=== PATIENT | female | born 1965 | race Caucasian/White ===

== ENCOUNTER 2020-05-24 16:22 | Emergency (ER) | payer BC, SELFPAY ==
[2020-05-24 16:37] VITALS: BP 126/71; PULSE 82; RESP 20; TEMP 36.6; O2SAT 100
--- NOTE | 2020-05-24 16:42 | ED.EAR ---
HPI - Ear Problem General Chief complaint: Ear Stated complaint: ear pain History of Present Illness HPI Narrative: This is a 54-year-old female comes in complaining of right ear pain. Patient states that she has chronic sinusitis she noticed a couple days ago that she started having sinus drainage in the back of her throat currently has a sore throat and pressure in her right side of the face that has been causing her headaches she takes allergy medicine daily with some's nasal spray. Patient states that she is waited about 2 days but she normally has gets ear infection noticed that there is some slight swelling on the right side. Patient states she can start taking allergy medicine twice a day now that she is not feeling well. Patient denies any fever nausea vomiting and/or diarrhea. Patient denies being exposed that she knows of to COVID-19 Related Data Home Medications Medication Instructions Recorded Confirmed fluticasone propionate 2 spray INTRANASAL DAILY 05/24/20 05/24/20 loratadine-pseudoephedrine 1 tablet PO Q12H 05/24/20 05/24/20 [[facility] 12 Hour] omeprazole 20 mg PO DAILY 05/24/20 05/24/20 Allergies Allergy/AdvReac Type Severity Reaction Status Date / Time Penicillins Allergy Hives Verified 05/24/20 16:40 Review of Systems Review of Systems: Narrative: CONSTITUTIONAL: Denies fever, chills, or sweats. EYES: Denies visual changes, redness, or discharge. ENT: Reports rhinorrhea, congestion, sore throat, or reports otalgia. CARDIOVASCULAR:Denies chest pain, palpitations, or edema. RESPIRATORY: Denies cough or dyspnea. GASTROINTESTINAL: Denies abdominal pain, nausea, vomiting, or diarrhea. GENITOURINARY: Denies dysuria or hematuria. SKIN:[Denies rash or itching. MUSCULOSKELETAL:Denies back pain, joint pain, or myalgia. NEUROLOGIC: Denies headache, numbness, or weakness. PSYCHIATRIC:Denies anxiety or depression PMFSH Comments At time as signature, I have reviewed and agree with nursing past medical, social, surgical and family history. Please see nursing chart for further information. There is no relevant family history pertinent to the presenting complaint. Exam Narrative: Exam Narrative: GENERAL:Well-appearing, well-nourished, and in no acute distress. HEAD:Normocephalic, atraumatic. EYES: PERRLA and EOMI. right-sided TM slightly pinkish fluid noted slightly cloudy ENT: Nares clear, positive rhinorrhea or epistaxis. Mucous membranes moist. NECK: Supple. CHEST: Clear to auscultation. No respiratory distress. HEART: Regular rate and rhythm. No murmur heard. Normal peripheral pulses. ABDOMEN: Soft, nontender, nondistended, normal active bowel sounds. EXTREMITIES: Normal range of motion. No edema. SKIN: Warm, dry, no rash. NEURO: No focal deficits. Alert and oriented x3. Course Vital Signs Vital signs: Vital Signs Temperature 98 F 05/24/20 16:37 Pulse Rate 82 05/24/20 16:37 Respiratory Rate 20 05/24/20 16:37 Blood Pressure 126/71 05/24/20 16:37 Pulse Oximetry 100 05/24/20 16:37 Temperature 98 F 05/24/20 16:37 Pulse Rate 82 05/24/20 16:37 Respiratory Rate 20 05/24/20 16:37 Blood Pressure 126/71 05/24/20 16:37 Pulse Oximetry 100 05/24/20 16:37 Medical Decision Making Differential Diagnosis Differential Diagnosis: UR pneumonia, Allergic Rhinitis, Asthma/COPD exacerbation, Upper respiratory cough syndrome, Pharyngitis, Sinusitis, Bronchitis, Influenza, otitis media Vital Signs Vital Signs: Vital Signs Temperature 98 F 05/24/20 16:37 Pulse Rate 82 05/24/20 16:37 Respiratory Rate 20 05/24/20 16:37 Blood Pressure 126/71 05/24/20 16:37 Pulse Oximetry 100 05/24/20 16:37 Temperature 98 F 05/24/20 16:37 Pulse Rate 82 05/24/20 16:37 Respiratory Rate 20 05/24/20 16:37 Blood Pressure 126/71 05/24/20 16:37 Pulse Oximetry 100 05/24/20 16:37 Discharge Plan Discharge Clinical Impression: Chronic frontal sinusitis Naila
== END 2020-05-24 17:04 | disposition home or self-care (01) ==
PROVIDERS: Emergency Provider Nurse Practitioner Family
DX: J32.1 Chronic frontal sinusitis (principal); H66.91 Otitis media, unspecified, right ear; K21.9 Gastro-esophageal reflux disease without esophagitis
CPT/HCPCS: 99203; G0463

== ENCOUNTER 2020-06-22 10:10 | Emergency (ER) | payer BC, SELFPAY ==
--- NOTE | 2020-06-22 10:22 | ED.URI ---
HPI - URI/Sore Throat General Chief Complaint: Upper Respiratory Infection Stated Complaint: sinus infection Source: patient and RN notes reviewed Limitations: no limitations History of Present Illness HPI Narrative: The patient, a previously healthy non-smoker/nondrinker hospital ministry worker, presents with congestion. Patient states she has a prior history of sinus disease including sinus surgery. She now has over a week, close to 2-week, history of frontal sinus headache, maxillary tenderness, right-sided nasal congestion. No triggers like smoker/pets [but she had dog in the house last week], loss of taste or smell, CP, cough, sneezing/wheezing, S OB, N/V/D, earache- she had a May prior [ear infection treated with Keflex]. Symptoms are mild, unrelieved with OTC preparations like fluticasone , and Claritin. [id number] testing for Covid antigen is negative Related Data Home Medications Medication Instructions Recorded Confirmed fluticasone propionate 2 spray INTRANASAL DAILY 05/24/20 05/24/20 loratadine-pseudoephedrine 1 tablet PO Q12H 05/24/20 05/24/20 [[facility] 12 Hour] omeprazole 20 mg PO DAILY 05/24/20 05/24/20 Allergies Allergy/AdvReac Type Severity Reaction Status Date / Time Penicillins Allergy Hives Verified 05/24/20 16:40 Review of Systems Review of Systems: Narrative: General/Constitutional: No weight loss,fever Eyes: N0: Redness,discharge Ears/Nose/Throat: No: Epistaxis,ear discharge Respiratory: Denies: Hemoptysis Gastrointestinal: No Vomiting, Bleeding-rectal Skin: No Lumps, eruption Neurologic: No Focal Weakness,Sz Hematologic: Denies: Petechiae/Purpura Psychiatric: No: Suicida ideationl All Other Systems: Reviewed and Negative PMFSH Social History Social History Gender identity (if verbalized by the patient): Female Comments At time of signature, agree with nursing past medical, surgical, social and family history. There is no relevant family history pertinent to the presenting complaint Exam Narrative: Exam Narrative: General Appearance: Well appearing, Well nourished EYE: PERRLA, Conjunctiva clear Ears: Auditory canal normal, TM normal Nose: Rhinorrhea, Mucousal erythema Mouth/Throat: MM moist, Uvula midline, Pharyngeal erythema Neck: Supple, No adenopathy Respiratory: No respiratory distress, airway patent Cardiovascular: , No JVD Musculoskeletal: Non tender, Normal strength Skin: Warm, Dry Neurological: A&O x3, CN II-XII intact Psychiatric: Normal mood, Normal affect Course Vital Signs Vital signs: Vital Signs Temperature 97.3 F L 06/22/20 10:27 Pulse Rate 70 06/22/20 10:27 Respiratory Rate 20 06/22/20 10:27 Blood Pressure 126/84 06/22/20 10:27 Pulse Oximetry 99 06/22/20 10:27 Temperature 97.3 F L 06/22/20 10:27 Pulse Rate 70 06/22/20 10:27 Respiratory Rate 20 06/22/20 10:27 Blood Pressure 126/84 06/22/20 10:27 Pulse Oximetry 99 06/22/20 10:27 MDM - URI/Sore Throat Lab Data Labs: Lab Results 06/22/20 Range/Units Unknown POC SARS CoV-2 Ag Negative (Negative) Discharge Plan Discharge Clinical Impression: Upper respiratory infection Qualifiers: URI type: unspecified URI Qualified Code(s): J06.9 - Acute upper respiratory infection, unspecified Patient Disposition: Home, Self-Care Condition: Stable Instructions: Antibiotic Form, Sinusitis (ED) Prescriptions: New azelastine 137 mcg (0.1 %) aerosol,spray 137 mcg NASAL Q12H Qty: 30 RF: 0 cefdinir 300 mg capsule 300 mg PO Q12H Qty: 14 RF: 0 tramadol 50 mg tablet 50 mg PO TID PRN (Reason: pain) Qty: 15 RF: 1 No Action [facility]in 12 Hour 5-120 mg Tablet Extended Release 12 Hr 1 tablet PO Q12H RF: 0 fluticasone propionate 50 mcg/actuation [place],Suspension 2 spray INTRANASAL DAILY RF: 0 omeprazole 20 mg Tablet,Delayed Release (Dr/Ec) 20 mg PO DAILY RF: 0 Follow-up/Referrals: [facility]
[2020-06-22 10:27] VITALS: BP 126/84; PULSE 70; RESP 20; TEMP 36.3; O2SAT 99
== END 2020-06-22 10:49 | disposition home or self-care (01) ==
PROVIDERS: Emergency Provider Emergency Medicine; PCP Internal Medicine
DX: J06.9 Acute upper respiratory infection, unspecified (principal); Z20.822 Contact with and (suspected) exposure to COVID-19
CPT/HCPCS: 87426; 99213; C9803; G0463

== ENCOUNTER 2021-06-11 10:44 | Emergency (ER) | payer BC, SELFPAY ==
[2021-06-11 10:58] VITALS: BP 136/78; PULSE 92; RESP 18; TEMP 36.6; O2SAT 100
--- NOTE | 2021-06-11 11:38 | ED.GENADULT ---
HPI - General Adult General Chief complaint: Upper Respiratory Infection Stated complaint: stuffy nose,sneezing Time Seen by Provider: 06/11/21 11:38 Source: patient Mode of arrival: ambulatory Limitations: no limitations History of Present Illness HPI narrative: Patient is a 55-year-old female presents to the urgent care via POV for evaluation of upper respiratory symptoms that have been present for approximately 6 days. Additionally, she reports cough, rhinorrhea, nasal congestion. Claritin-D and Excedrin provide some relief. Nothing worsens symptoms. Patient states she is fully vaccinated against Covid and also has had Covid booster. She also reports being vaccinated against influenza. Denies known exposure to sick contacts. Related Data Home Medications Medication Instructions Recorded Confirmed cholecalciferol (vitamin D3) 25 mcg PO DAILY 06/11/21 06/11/21 loratadine-pseudoephedrine 1 tablet PO DAILY 06/11/21 06/11/21 [Claritin-D 12 Hour] fygpblqdsulo-xgc-xrvz-FA-vit K 1 tablet PO DAILY 06/11/21 06/11/21 [Adults Multivitamin] pseudoephedrine-acetaminophen 1 tablet DAILY 06/11/21 06/11/21 [Excedrin Sinus] Allergies Allergy/AdvReac Type Severity Reaction Status Date / Time Penicillins Allergy Hives Verified 06/11/21 11:24 Review of Systems Review of Systems: Denies fever, chills, sweats, change in appetite, poor p.o. intake, shortness of breath, cyanosis, wheezing, abdominal pain, nausea, vomiting, diarrhea, chest pain, and heart palpitations PMFSH Social History Social History Gender identity (if verbalized by the patient): Female Comments I have reviewed and agree with the patient's past medical, surgical, social, and family hx as documented by the RN. There is no relevant family history pertinent to the presenting complaint. Exam Narrative: GENERAL: Well-appearing, well-nourished, and in no acute distress. HEAD: Normocephalic, atraumatic. No sinus tenderness or facial swelling appreciated. EYES: PERRLA and EOMI. No evidence of erythema, swelling, or drainage. ENT: Bilateral TMs retracted otherwise normal. Bilateral external ears and ear canals normal. No TM perforation. Nares clear, no rhinorrhea or epistaxis. Bilateral turbinates without erythema/ swelling. Mucous membranes moist and pink. Uvula is midline without erythema and swelling. No evidence of petechial rash, cobblestoning, lesions, ulcers, erythema, swelling, exudates, peritonsillar abscess, tenting, or drooling. Breath odor and voice normal. NECK: Supple. No Lymphadenopathy or nuchal rigidity appreciated. CHEST: Bilateral lung henriquez are clear to auscultation. No respiratory distress. No evidence of cough or pleuritic cp upon examination. HEART: Regular rate and rhythm. No murmur, gallop, or rub heard. EXTREMITIES: Normal range of motion. No edema. SKIN: Warm, dry, no rash. NEURO: No focal deficits. Alert and oriented x3. Course Vital Signs Vital signs: Vital Signs Temperature 97.8 F 06/11/21 10:58 Pulse Rate 92 06/11/21 10:58 Respiratory Rate 18 06/11/21 10:58 Blood Pressure 136/78 06/11/21 10:58 Pulse Oximetry 100 06/11/21 10:58 Temperature 97.8 F 06/11/21 10:58 Pulse Rate 92 06/11/21 10:58 Respiratory Rate 18 06/11/21 10:58 Blood Pressure 136/78 06/11/21 10:58 Pulse Oximetry 100 06/11/21 10:58 Due to an elevated blood pressure, I had a detailed discussion with the patient and/or guardian regarding the need for follow-up with their primary care provider within the next 3-4 days. Patient verbalized understanding and agreed. Medical Decision Making Differential Diagnosis Differential Diagnosis: Allergic rhinitis, ABRS, acute viral sinusitis, strep pharyngitis, nasopharyngitis, bronchitis, pneumonia, AOM, otitis externa, viral URI, influenza, covid-19 Medical Records Medical records reviewed: Yes I reviewed the external
== END 2021-06-11 12:00 | disposition home or self-care (01) ==
PROVIDERS: Nurse Practitioner Family; Emergency Provider Nurse Practitioner Family
DX: U07.1 COVID-19 (principal); K21.9 Gastro-esophageal reflux disease without esophagitis
CPT/HCPCS: 87426; 99213; C9803; G0463

== ENCOUNTER 2022-03-17 18:28 | Emergency (ER) | payer BC, SELFPAY ==
--- NOTE | 2022-03-17 18:35 | ED.EYEPROB ---
HPI - Eye Problem General Chief complaint: Eye Problems Stated complaint: Lt Eye Irritation Time Seen by Provider: 03/17/22 18:59 Source: patient and RN notes reviewed Mode of arrival: ambulatory Limitations: no limitations History of Present Illness HPI Narrative: 56-year-old female presents with concern for left eye redness, irritation, pain, discharge. She reports symptoms started today. She denies upper respiratory symptoms. She reports some blurry vision. She reports she is currently wearing her contact lenses. She denies injury or trauma MD chief complaint: eye redness Related Data Home Medications Medication Instructions Recorded Confirmed loratadine 5 mg-pseudoephedrine ER 1 tablet PO Q12H 03/17/22 03/17/22 120 mg tablet,extended release,12hr (Claritin-D 12 Hour) omeprazole 20 mg capsule,delayed 20 mg PO DAILY 03/17/22 03/17/22 release Allergies Allergy/AdvReac Type Severity Reaction Status Date / Time Penicillins Allergy Hives Verified 03/17/22 18:49 Review of Systems Review of Systems: CONSTITUTIONAL: Denies malaise, chills, sweats, or fever. EYES: Reports blurry vision in left eye. Reports left eye redness, irritation, discharge. ENT: Denies rhinorrhea, congestion, sinus pain, otalgia or sore throat. SKIN: Denies rash or itching. NEUROLOGIC: Denies numbness, weakness, or headache. PSYCHIATRIC: Denies anxiety or depression. All systems reviewed & are unremarkable except as noted in HPI and below PMFSH Social History Social History Gender identity (if verbalized by the patient): Female Comments At time of signature, agree with nursing past medical, surgical, social and family history. There is no relevant family history pertinent to the presenting complaint Exam Narrative: GENERAL: Well-appearing, well-nourished, and in no acute distress. HEAD: Normocephalic, atraumatic. EYES: PERRLA, right sclera clear, and EOMI. No nystagmus. Left sclera and conjunctivae injected with yellow discharge. Upper and lower eyelid unremarkable, no periorbital edema noted ENT: Nares clear, turbinates pink, no rhinorrhea or epistaxis. Mucous membranes moist. TM pearly guzman with sharp light reflex bilaterally; no tragal tenderness. NECK: Supple. CHEST: No respiratory distress. Speaks in full sentences. HEART: Regular rate and rhythm. SKIN: Warm, dry, no visible rash. NEURO: Alert and oriented x3. PSYCH: Normal mood and affect Course Course Emergency Course: Patient is aware of diagnosis, understands and agrees to treatment plan. Anticipatory guidance given. Patient agrees to follow-up as directed and is aware of reasons to seek care at the emergency department. Portions of this record may have been created with voice recognition software Level of Care: Express Care Visit Vital Signs Vital signs: Reviewed. MDM - Eye Problem MDM Narrative Medical decision making narrative: Consideration of the following conditions may be warranted for the presenting problem, they are not final diagnoses: Bacterial conjunctivitis, allergic conjunctivitis, viral conjunctivitis, foreign body, blepharitis, chalazion, hordeolum, corneal abrasion, preseptal cellulitis, orbital cellulitis. No evidence of proptosis, ophthalmoplegia, vision loss, pain with eye movement. Exam findings show no acute concerns or changes; patient is non-toxic appearing and is in no distress. Patient is appropriate for outpatient treatment and follow-up. Critical Care Time Critical Care Time Critical Care Time: No Discharge Plan Discharge Clinical Impression: Conjunctivitis Patient Disposition: Home, Self-Care Condition: Stable Instructions: Conjunctivitis (ED) Additional Instructions: Do not touch or rub your eye. Use a warm or cool washcloth on your eye for comfort Use eyedrops as directed Practice good handwashing and hygiene to prevent spread of infection You
[2022-03-17 18:40] VITALS: BP 131/84; PULSE 72; RESP 18; TEMP 36.8; O2SAT 100
== END 2022-03-17 19:11 | disposition home or self-care (01) ==
PROVIDERS: Emergency Provider Nurse Practitioner
DX: H10.9 Unspecified conjunctivitis (principal); K21.9 Gastro-esophageal reflux disease without esophagitis
CPT/HCPCS: 99213; G0463